=== PATIENT | female | born 1955 | race Caucasian/White ===

== ENCOUNTER 2019-11-04 21:07 | Emergency (ER) | payer OTHER ==
[2019-11-04 21:17] VITALS: TEMP 98.7; BMI 25.6
--- NOTE | 2019-11-04 21:44 | PDOC ---
History of Present Illness - General Chief Complaint: Blood Pressure Problem Stated Complaint: HYPERTENSION Time Seen by Provider: 11/04/19 21:43 History Source: Patient, Significant Other Exam Limitations: No Limitations - History of Present Illness Initial Comments: 11/04/19 22:08 63yF w PMHx DM, HTN presenting w 2d increased urinary frequency, generalized malaise, fatigue, HTN BP 160/80. BP raised to BP 200/100 when EMS checked. Took 2 HTN meds instead of 1 today. Visiting from [place] accompanying who is getting dental work in [place]. Denies fever, cough, chest pain, SOB, n/v, ABD pain, diarrhea. Past History - Medical History Allergies/Adverse Reactions: Allergies Allergy/AdvReac Type Severity Reaction Status Date / Time No Known Allergies Allergy Unverified 11/04/19 22:55 - Psycho-Social/Smoking History Smoking History: Never smoked Have you smoked in the past 12 months: No Information on smoking cessation initiated: No - Substance Abuse Hx (Audit-C & DAST Scrn) How often the patient has a drink containing alcohol: Never Score: In Men: 4 or > Positive; In Women: 3 or > Positive: 0 Screen Result (Pos requires Nsg. Audit-10AR): Negative In the last yr the pt used illegal drug/Rx for NonMed reason: No Score: Yes response is considered Positive: 0 Screen Result (Positive result requires Nsg. DAST-10): Negative Review of Systems - Review of Systems Constitutional: Yes: Malaise, Weakness. No: Chills, Fever HEENTM: No: Eye Pain, Nose Congestion Respiratory: No: Cough, Shortness of Breath Cardiac (ROS): No: Chest Pain, Palpitations ABD/GI: No: Constipated, Diarrhea, Nausea, Vomiting : Yes: Frequency. No: Burning Musculoskeletal: No: Back Pain, Joint Pain Integumentary: No: Bruising, Flushing Neurological: No: Headache, Seizure Psychiatric: No: Anxiety, Depression Endocrine: No: Intolerance to Cold, Intolerance to Heat Hematologic/Lymphatic: No: Anemia, Blood Clots *Physical Exam - Vital Signs Last Vital Signs Temp Pulse Resp BP Pulse Ox 98.7 F 95 H 18 160/82 97 11/04/19 21:13 11/04/19 21:13 11/04/19 21:13 11/04/19 21:13 11/04/19 21:13 - Physical Exam General Appearance: Yes: Nourished, Appropriately Dressed, Mild Distress HEENT: positive: EOMI, AMANDEEP, Normal Voice, Hearing Grossly Normal. negative: Scleral Icterus (R), Scleral Icterus (L) Respiratory/Chest: positive: Lungs Clear, Normal Breath Sounds. negative: Chest Tender, Respiratory Distress Cardiovascular: positive: Regular Rhythm, Regular Rate, S1, S2. negative: Edema, Murmur Gastrointestinal/Abdominal: positive: Normal Bowel Sounds, Flat, Soft. neg ative: Tender, Organomegaly Musculoskeletal: negative: CVA Tenderness (R), CVA Tenderness (L) Extremity: positive: Normal Capillary Refill Integumentary: positive: Normal Color, Warm. negative: Dry Neurologic: positive: Fully Oriented, Alert, Normal Mood/Affect, Normal Response ED Treatment Course - LABORATORY CBC & Chemistry Diagram: 11/04/19 22:16 11/04/19 22:16 Medical Decision Making - Medical Decision Making 11/04/19 22:13 CXR - clear lung magallanes EKG - NSR, HR 94, QTc 460, no ST changes --- 63yF w PMHx DM, HTN presenting w 2d increased urinary frequency, generalized malaise, fatigue, HTN BP 160/80. Low concern for PNA (clear lungs) vs UTI (clean) ACS (no chest pain, no ST changes) vs high hyperglycemia (BG 139) DC home w PCP f/u Discharge - Discharge Information Problems reviewed: Yes Clinical Impression/Diagnosis: Malaise and fatigue Condition: Good Disposition: HOME - Follow up/Referral - Patient Discharge Instructions Patient Printed Discharge Instructions: DI for High Blood Pressure Additional Instructions: Your workup did not show anything concerning. You do not have a lung or urine infection. Take your blood pressure medication as directed Take tylenol if you have pain or fever Drink lots of water Follow up with your primary care doctor. - Post Discharge Activity
--- NOTE | 2019-11-04 22:16 | PDOC ---
Documentation entered by Amberly Garza SCRIBE, acting as scribe for Abida Morales MD. Abida Morales MD: This documentation has been prepared by the Greg ascencio Brenda, SCRIBE, under my direction and personally reviewed by me in its entirety. I confirm that the documentation accurately reflects all work, treatment, procedures, and medical decision making performed by me. Attending Attestation - Resident Resident Name: Wei Jackson - ED Attending Attestation I have performed the following: I have examined & evaluated the patient, The case was reviewed & discussed with the resident, I agree w/resident's findings & plan, Exceptions are as noted - HPI HPI: 11/04/19 22:06 The patient is a 63 year old female with a significant PMH of HTN and diabetes who presents to the emergency department for evaluation of 2 days of malaise and increased urinary frequency for the past 2 days, with high blood pressure measured at home per her report. EMS noted that her BP was in the 200s systolic on their arrival on scene. The patient denies chest pain, shortness of breath, headache and dizziness. Denies fever, chills, nausea, vomiting, diarrhea and constipation. Denies dysuria, frequency, urgency and hematuria. Allergies: NKA Social history: No reported hx of tobacco use, alcohol use or illicit drug use. - Physicial Exam PE: 11/04/19 22:15 GENERAL: well-appearing, A/Ox4, no distress, answers questions appropriately HEENT: PERRLA, EOMI, moist mucous membranes NECK/BACK: no midline ttp, no spinal step-off or deformity, no hematoma, full ROM, neck supple CARDIOVASCULAR: regular rate/rhythm, no MGR, strong peripheral pulses, capillary refill <2 seconds, extremities wwp, no edema LUNGS/RESPIRATORY: no respiratory distress, CTAB GI/ABDOMEN: symmetric [id number], normoactive BS, soft, no ttp, no midline pulsatile masses : no CVA tenderness MSK/EXTREMITIES: no muscle atrophy, no acute deformity SKIN: warm and dry, no pallor, no jaundice, no rash, no path - Medical Decision Making 11/04/19 23:50 63YOF with HTN, DM p/w malaise x2 days as well as urinary frequency. Initial Vital Signs Temp Pulse Resp BP Pulse Ox 98.7 F 95 H 18 160/82 97 11/04/19 21:13 11/04/19 21:13 11/04/19 21:13 11/04/19 21:13 11/04/19 21:13 Exam is benign, patient mildly hypertensive at this time. Most likely this is UTI or hyperglycemia, possible viral syndrome, less likely but possible interstitial cystitis or neurogenic bladder or medication effect. HTN likely essential as per her chronic diagnosis but will recheck throughout the course of her ED stay to ensure it is simple hypertension and not within the range that would concern us for hypertensive emergency. W/U ordered: Labs as noted below, EKG Tx ordered: Tylenol (for stated head-to-toe body aches Laboratory Tests 11/04/19 11/04/19 11/04/19 22:16 22:16 23:50 WBC 8.7 RBC 4.49 Hgb 13.1 Hct 40.1 MCV 89.3 MCH 29.2 MCHC 32.7 RDW 14.0 Plt Count 253 MPV 9.5 Absolute Neuts (auto) 5.6 Neutrophils % 64.3 Lymphocytes % 27.6 Monocytes % 5.8 Eosinophils % 0.7 Basophils % 1.6 Nucleated RBC % 0 Platelet Estimate Adequate Platelet Comment No clumping noted Sodium 140 Potassium 4.4 Chloride 104 Carbon Dioxide 27 Anion Gap 9 BUN 14.7 Creatinine 0.9 Est GFR (CKD-EPI)AfAm 79.42 Est GFR (CKD-EPI)NonAf 68.53 Random Glucose 139 H Calcium 9.7 Total Bilirubin 0.3 AST 30 ALT 28 Alkaline Phosphatase 87 Total Protein 8.1 Albumin 4.0 Urine Color Yellow Urine Appearance Clear Urine pH 8.5 H Ur Specific [place] 1.006 L Urine Protein Negative Urine Glucose (UA) Negative Urine Ketones Negative Urine Blood Negative Urine Nitrite Negative Urine Bilirubin Negative Urine Urobilinogen 0.2 Ur Leukocyte Esterase Negative Heart Score/ECG Review #1 Sinus rhythm, rate 94, normal axis and intervals, no ischemic ST-T changes Discharge - Discharge Information Problems reviewed: Yes Clinical Impression/Diagnosis: Malaise and fatigue Condition: Good Disposition: HOME - Admission No - Follow up/Referral - Patient Discharge Instructions Patient Printed Discharge Instructions: DI for High Blood Pressure Additional Instructions: Your workup did not show anything concerning. You do not have a lung or urine infection. Take your blood pressure medication as directed Take tylenol if you have pain or fever Drink lots of water Follow up with your primary care doctor. - Post Discharge Activity
[2019-11-04 22:44] LABS: BASO % 1.6 % (0-2.0); EOS % 0.7 % (0-4.5); HEMATOCRIT 40.1 % (32.4-45.2); HEMOGLOBIN 13.1 GM/dL (10.7-15.3); LYMPH % 27.6 % (8-40); MCH 29.2 pg (25.7-33.7); MCHC 32.7 g/dl (32.0-36.0); MEAN CELL VOLUME 89.3 fl (80-96); MONO % 5.8 % (3.8-10.2); NEUT % 64.3 % (42.8-82.8); RBC 4.49 M/mm3 (3.60-5.2); WHITE BLOOD COUNT 8.7 K/mm3 (4.0-10.0)
[2019-11-04 23:09] LABS: BILIRUBIN,TOTAL 0.3 mg/dL (0.2-1); BLOOD UREA NITROGEN 14.7 mg/dL (7-18); CALCIUM 9.7 mg/dL (8.5-10.1); CREATININE 0.9 mg/dL (0.55-1.3); POTASSIUM 4.4 mmol/L (3.5-5.1); TOT PROT 8.1 g/dl (6.4-8.2)
[2019-11-04 23:23] LABS: MEAN PLT VOLUME 9.5 fl (7.5-11.1); PLATELET COUNT 253 K/MM3 (134-434); PLATELET ESTIMATE ADEQUATE
[2019-11-05 00:13] LABS: PH,URINE 8.5 (5.0-8.0); URINE APPEARANCE CLEAR; URINE BILIRUBIN NEGATIVE (NEGATIVE); URINE COLOR YELLOW; URINE GLUCOSE (UA) NEGATIVE (NEGATIVE); URINE KETONE NEGATIVE (NEGATIVE); URINE LEUK ESTERASE NEGATIVE (NEGATIVE); URINE NITRITE NEGATIVE (NEGATIVE); URINE PROTEIN NEGATIVE (NEGATIVE); URINE UROBILINOGEN 0.2 mg/dL (0.2-1.0)
[2019-11-05] MEDS ORDERED: ACETAMINOPHEN 500 MG TABLET (FP) PO ONE (00:14)
[2019-11-05 00:38] VITALS: BP 129/54; PULSE 82
[2019-11-05] MEDS ORDERED: ACETAMINOPHEN 325 MG TABLET (FP) ONE (00:42)
--- NOTE | 2019-11-06 17:33 | EKG ---
Test Reason : Blood Pressure : / mmHG Vent. Rate : 094 BPM Atrial Rate : 094 BPM P-R Int : 160 ms QRS Dur : 100 ms QT Int : 368 ms P-R-T Axes : 046 003 072 degrees QTc Int : 460 ms NORMAL SINUS RHYTHM POSSIBLE LEFT ATRIAL ENLARGEMENT NONSPECIFIC ST AND T WAVE ABNORMALITY ABNORMAL ECG NO PREVIOUS ECGS AVAILABLE Confirmed by MD Lo Edward ([id number]) on 11/06/2019 5:33:14 PM Referred By: Confirmed By:Aquilino Lo MD
== END 2019-11-05 00:55 | disposition home or self-care (01) ==
LOC: JER 21:07
DX: R53.81 Other malaise (principal); R53.83 Other fatigue
CPT/HCPCS: 36415; 71045-TC-FY; 80053; 81003; 85025; 93005; 93010; 99285-25